=== PATIENT | female | born 1935 | race Two or more races ===

== ENCOUNTER → 2024-11-04 | Outpatient (CLI) | payer MEDICARE, SELFPAY ==
--- NOTE | 2024-11-04 15:40 | XR_ITS ---
Examination: Knee, left , 3 views Technique: Knee AP, lateral, oblique 3 views Date and time of exam: November 04, 2024 1621 hrs. Indications: Knee pain years. Findings: Severe osteopenia Moderate to advanced tricompartment osteoarthritis No fracture Small knee effusion Impression: Moderate to advanced tricompartment osteoarthritis
== END | disposition home or self-care (01) ==
PROVIDERS: PCP Family Medicine; Referring Provider Family Medicine; Visit Provider Family Medicine
DX: M17.12 Unilateral primary osteoarthritis, left knee (principal)
CPT/HCPCS: 73562

== ENCOUNTER 2024-12-20 10:32 | Emergency (ER) | payer OTHER, SELFPAY ==
[2024-12-20 11:04] VITALS: BP 128/60; PULSE 96; RESP 17; TEMP 36.7; O2SAT 99; BMI 43.9
--- NOTE | 2024-12-20 11:17 | PD.EDRME ---
Rapid Medical Screening Exam E Arrival date/time: 12/20/24 10:32 This is an 89-year-old female that is brought in by daughter with complaints of mouth bleeding. Patient states that she thinks she has a cut on her mouth. Over the past few days she has been spitting up blood. Patient states is not vomiting blood that is coming from her mouth. Patient denies any trauma. Patient has a history of high cholesterol, high blood pressure, and is on Eliquis. I have greeted and performed a focused initial assessment of this patient. Initial appropriate labs ordered at this time. A comprehensive ED assessment and evaluation of the patient and analysis of all test and completion of medical decision making process will be conducted by additional ED provider. Chief Complaint: Nausea/Vomiting/Diarrhea Time Seen by Provider: 12/20/24 11:01 Vital signs: Vital Signs Temperature 98.0 F 12/20/24 11:04 Pulse Rate 96 12/20/24 11:04 Respiratory Rate 17 12/20/24 11:04 Blood Pressure 128/60 12/20/24 11:04 Pulse Oximetry (%) 99 12/20/24 11:04 Oxygen Delivery Method Room Air 12/20/24 11:04
[2024-12-20 11:41] LABS: Basophils # (Auto) 0.1 Thou/mm3 (0.0-0.2); Basophils % (Auto) 1 % (0-2.5); Eosinophils # (Auto) 0.3 Thou/mm3 (0.0-0.5); Eosinophils % (Auto) 5 % (0-10); Hematocrit 31.3 % (36.0-46.0); Hemoglobin 9.5 g/dL (12.0-16.0); Immature Granulocytes % (Auto) 0 % (0-0); Immature Granulocytes Auto 0.02 Thou/mm3 (0.00-0.00); Lymphocytes # (Auto) 1.6 Thou/mm3 (1.0-4.8); Lymphocytes % (Auto) 28 % (10-50); Mean Corpuscular HGB Conc 30.4 g/dl (31.0-37.0); Mean Corpuscular Hemoglobin 26.9 pg (25.0-35.0); Mean Corpuscular Volume 89 fL (80-100); Monocytes # (Auto) 0.7 Thou/mm3 (0.0-0.8); Monocytes % (Auto) 11 % (0-12); Neutrophils # (Auto) 3.1 Thou/mm3 (1.8-7.7); Neutrophils % (Auto) 55 % (37-80); Nucleated Red Blood Cell % 0 /100 WBC (0); Platelet Count 287 Thou/mm3 (140-440); RDW Standard Deviation 49.1 fL (36.4-46.3); Red Blood Count 3.53 Miln/mm3 (4.00-5.20); White Blood Count 5.7 Thou/mm3 (3.6-11.0)
--- NOTE | 2024-12-20 14:04 | PD.EDADULT ---
ED General RME/HPI General Chief complaint: Nausea/Vomiting/Diarrhea Stated complaint: VOMITING BLOOD Time Seen by Provider: 12/20/24 11:01 Arrival date/time: 12/20/24 10:32 This is an 89-year-old female that is brought in by daughter with complaints of mouth bleeding. Patient states that she thinks she has a cut on her mouth. Over the past few days she has been spitting up blood. Patient states is not vomiting blood that is coming from her mouth. Patient denies any trauma. Patient has a history of high cholesterol, high blood pressure, and is on Eliquis. RME / HPI RME / HPI narrative: 12/20/24 10:32 This is an 89-year-old female that is brought in by daughter with complaints of mouth bleeding. Patient states that she thinks she has a cut on her mouth. Over the past few days she has been spitting up blood. Patient states is not vomiting blood that is coming from her mouth. Patient denies any trauma. Patient has a history of high cholesterol, high blood pressure, and is on Eliquis. I have greeted and performed a focused initial assessment of this patient. Initial appropriate labs ordered at this time. A comprehensive ED assessment and evaluation of the patient and analysis of all test and completion of medical decision making process will be conducted by additional ED provider. Related Data Home Medications ?Medication ?Instructions ?Recorded ?Confirmed alendronate 70 mg effervescent 70 mg PO QOWEEK 11/02/17 04/03/24 tablet calcium 600 mg (as 1 tab PO BID 11/02/17 04/03/24 carbonate)-vitamin D3 5 mcg (200 unit) capsule (Calcium 600 + D(3)) atorvastatin 20 mg tablet 20 mg PO HS 07/02/19 04/03/24 apixaban 5 mg tablet (Eliquis) 2.5 mg PO BID 08/27/19 04/03/24 furosemide 20 mg tablet 20 mg PO QAM 05/05/22 04/03/24 lisinopril 10 mg tablet 10 mg PO QDAY 04/03/24 04/03/24 Allergies Allergy/AdvReac Type Severity Reaction Status Date / Time Penicillins Allergy Unknown FEELS DIZZY Verified 12/20/24 10:35 Course Orders Category Date Time Status CBC Stat Lab 12/20/24 11:32 Completed Vital Signs Vital signs: Vital Signs Temperature 98.0 F 12/20/24 11:04 Pulse Rate 96 12/20/24 11:04 Respiratory Rate 17 12/20/24 11:04 Blood Pressure 128/60 12/20/24 11:04 Pulse Oximetry (%) 99 12/20/24 11:04 Oxygen Delivery Method Room Air 12/20/24 11:04 Medical Decision Making MDM Narrative MDM Narrative: CBC done and white count was 5.7 hemoglobin and hematocrit are 9.5 and 31.3 platelet count is 287.. No more bleeding noted. Patient is on Eliquis for irregular heartbeat. Lab Data 12/20/24 11:32 Labs: Lab Results 12/20/24 Range/Units 11:32 WBC 5.7 (3.6-11.0) Thou/mm3 RBC 3.53 L (4.00-5.20) Miln/mm3 Hgb 9.5 L (12.0-16.0) g/dL Hct 31.3 L (36.0-46.0) % MCV 89 (80-100) fL MCH 26.9 (25.0-35.0) pg MCHC 30.4 L (31.0-37.0) g/dl RDW Std Deviation 49.1 H (36.4-46.3) fL Plt Count 287 (140-440) Thou/mm3 Neut % (Auto) 55 (37-80) % Lymph % (Auto) 28 (10-50) % [place] % (Auto) 11 (0-12) % Eos % (Auto) 5 (0-10) % Baso % (Auto) 1 (0-2.5) % Neut # (Auto) 3.1 (1.8-7.7) Thou/mm3 Lymph # (Auto) 1.6 (1.0-4.8) Thou/mm3 [place] # (Auto) 0.7 (0.0-0.8) Thou/mm3 Eos # (Auto) 0.3 (0.0-0.5) Thou/mm3 Baso # (Auto) 0.1 (0.0-0.2) Thou/mm3 Immature Gran # (Auto) 0.02 H (0.00-0.00) Thou/mm3 Absolute Nucleated RBC 0.00 (0.00-0.00) Thou/mm3 Immature Gran % 0 (0-0) % Nucleated RBC % 0 (0) /100 WBC Discharge Plan Plan Patient Disposition: HOME (Self Care) Patient condition on transfer: Stable Prescriptions/Referrals Prescriptions/Med Rec: No Action Calcium 600 + D(3) 600 mg calcium- 200 unit Capsule 1 tab PO BID alendronate 70 mg Tablet, Effervescent 70 mg PO QOWEEK Rx Instructions: weds Eliquis 5 mg Tablet 2.5 mg PO BID atorvastatin 20 mg Tablet 20 mg PO HS furosemide 20 mg Tablet 20 mg PO QAM lisinopril 10 mg Tablet 10 mg PO QDAY Referrals: Cruz Dooley MD [Primary Care Provider] - In 1 week Problem List Clinical Impression: History of hemorrhage of tongue, 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 Come back to ED if symptoms change or worsen. If patient continues to have symptoms of bleeding please make sure primary provider knows about this and follow-up with them. May need to speak to liaison planner about current blood thinner if bleeding continues. Print Language: Uruguayan Stand Alone Forms: Micaela Award Info., Patient Portal Info Letter BLANCHE/NGUYEN Supervising Physician BLANCHE/NGUYEN Supervising Physician: zina
== END 2024-12-20 14:16 | disposition home or self-care (01) ==
PROVIDERS: Nurse Practitioner Family; Emergency Provider Emergency Medicine; PCP Family Medicine
DX: K14.8 Other diseases of tongue (principal); E78.00 Pure hypercholesterolemia, unspecified
CPT/HCPCS: 36415; 85025; 99283

== ENCOUNTER → 2024-12-23 | Outpatient (CLI) | payer MEDICARE, MEDICAID, SELFPAY ==
--- NOTE | 2024-12-23 16:00 | XR_ITS ---
EXAMINATION: Ankle, right 3 views . Technique: Ankle AP, oblique, lateral 3 views Date and time of exam: December 23, 2024 1610 hrs. Indications: Swelling palpable mass ankle, 3 years post ankle fracture Findings: Prominent lateral malleolar soft tissue swelling Healed fracture distal fibular shaft No acute fracture No chetan cortical bone destruction 8mm plantar bony calcaneal spur Impression: Prominent lateral malleolar soft tissue swelling, recommend ultrasound soft tissue ankle follow-up Acute fracture fibular shaft with satisfactory alignment
--- NOTE | 2024-12-23 16:01 | XR_ITS ---
Examination: AP bilateral knees single view Technique: Standing bilateral AP knees single view Exam date and time: December 23, 2024 1610 hrs. Indications: Left knee pain beginning 6 months ago. 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
== END | disposition home or self-care (01) ==
LOC: CDIM 15:23
PROVIDERS: PCP Family Medicine; Referring Provider Family Medicine; Visit Provider Family Medicine
DX: M17.12 Unilateral primary osteoarthritis, left knee (principal); Z96.651 Presence of right artificial knee joint; M25.471 Effusion, right ankle; S82.401A Unspecified fracture of shaft of right fibula, initial encounter for closed fracture; X58.XXXA Exposure to other specified factors, initial encounter
CPT/HCPCS: 73565; 73610

== ENCOUNTER → 2025-03-26 | Outpatient (CLI) | payer MEDICARE, MEDICAID, SELFPAY ==
--- NOTE | 2025-03-26 15:44 | XR_ITS ---
Examination: Bilateral AP knees single view TECHNIQUE: Bilateral AP knees standing single view Date and time: March 26, 2025 1601 hours INDICATIONS: Diagnosis primary osteoarthritis left knee, right knee surgery 2 years ago. FINDINGS: Significant osteopenia Total right knee arthroplasty. Satisfactory alignment Moderate to advanced osteoarthritis joint narrowing lateral joint space left knee Moderate osteoarthritis medial joint space left knee Normal left knee fracture IMPRESSION: Moderate to advanced osteoarthritis left lateral joint space Moderate osteoarthritis left medial joint space
--- NOTE | 2025-03-26 15:44 | XR_ITS ---
EXAMINATION: Ankle, right 3 views . Technique: Ankle AP, oblique, lateral 3 views Date and time of exam: March 26, 2025, 1552 hours Comparison December 23, 2024 INDICATIONS: Ankle surgery 2 years ago. FINDINGS: Healed bimalleolar fractures Moderate posttraumatic osteoarthritis tibiotalar joint 8 mm plantar bony calcaneal spur No acute fracture IMPRESSION: Moderate posttraumatic osteoarthritis tibiotalar joint
== END | disposition home or self-care (01) ==
LOC: CDIM 15:20
PROVIDERS: PCP Family Medicine; Referring Provider Orthopaedic Surgery; Visit Provider Orthopaedic Surgery
DX: M19.171 Post-traumatic osteoarthritis, right ankle and foot (principal); M17.12 Unilateral primary osteoarthritis, left knee
CPT/HCPCS: 73565; 73610

== ENCOUNTER 2025-05-24 19:17 | Emergency (ER) | payer MEDICARE, MEDICAID, SELFPAY ==
[2025-05-24 19:20] VITALS: BMI 35.1
--- NOTE | 2025-05-24 19:28 | XR_ITS ---
Examination: Foot, right, 3 views Technique: AP, oblique, lateral views foot, 3 views Date and time of exam: May 24, 20252006 hrs. Indications: Bruising and pain involving the foot beginning 2 days ago. Findings: Severe osteopenia No acute fracture 10 mm plantar bony calcaneal spur. Soft tissue swelling dorsum of the foot Impression: Soft tissue swelling dorsum of the foot No fracture No cortical bone destruction
[2025-05-24 20:18] VITALS: BP 135/77; PULSE 82; RESP 20; TEMP 36.8; O2SAT 97
--- NOTE | 2025-05-24 20:26 | XR_ITS ---
Examination: Duplex scan of the lower extremity, unilateral right Date and time of exam: May 24, 20252049 hrs. Indications: Onset right foot swelling and pain today Technique: Duplex scan of the extremity veins using B-mode/grayscale imaging and Doppler spectral analysis and color flow Attention is directed to internal echogenicity, compression and augmentation involving these veins, color flow assessment, spectral analysis Findings: Major deep venous structures in the extremity demonstrate normal course and caliber. There is no evidence of deep vein thrombosis. Normal color flow and spectral analysis Impression: Negative for DVT..
--- NOTE | 2025-05-24 20:26 | PD.EDRME ---
Rapid Medical Screening Exam RME Arrival date/time: 05/24/25 19:17 This is a case of 89-year-old female who have history of ankle surgery came in in the emergency room due to bluish discoloration of the right foot and swelling of the right foot right ankle and right lower leg no injury no trauma no other symptoms noted Chief Complaint: Ankle/Foot Injury Time Seen by Provider: 05/24/25 19:36 Vital signs: Vital Signs Temperature 98.2 F 05/24/25 20:18 Pulse Rate 82 05/24/25 20:18 Respiratory Rate 20 05/24/25 20:18 Blood Pressure 135/77 H 05/24/25 20:18 Pulse Oximetry (%) 97 05/24/25 20:18 Oxygen Delivery Method Room Air 05/24/25 20:18
[2025-05-24 21:03] LABS: Basophils # (Auto) 0.1 Thou/mm3 (0.0-0.2); Basophils % (Auto) 1 % (0-2.5); Eosinophils # (Auto) 0.2 Thou/mm3 (0.0-0.5); Eosinophils % (Auto) 3 % (0-10); Hematocrit 30.7 % (36.0-46.0); Hemoglobin 9.4 g/dL (12.0-16.0); Immature Granulocytes Auto 0.02 Thou/mm3 (0.00-0.00); Lymphocytes # (Auto) 1.8 Thou/mm3 (1.0-4.8); Lymphocytes % (Auto) 28 % (10-50); Mean Corpuscular HGB Conc 30.6 g/dl (31.0-37.0); Mean Corpuscular Hemoglobin 26.1 pg (25.0-35.0); Mean Corpuscular Volume 85 fL (80-100); Monocytes # (Auto) 0.8 Thou/mm3 (0.0-0.8); Monocytes % (Auto) 12 % (0-12); Neutrophils # (Auto) 3.7 Thou/mm3 (1.8-7.7); Neutrophils % (Auto) 56 % (37-80); Nucleated Red Blood Cell # 0.00 Thou/mm3 (0.00-0.00); Nucleated Red Blood Cell % 0 /100 WBC (0); Platelet Count 257 Thou/mm3 (140-440); RDW Standard Deviation 51.8 fL (36.4-46.3); Red Blood Count 3.60 Miln/mm3 (4.00-5.20); White Blood Count 6.6 Thou/mm3 (3.6-11.0)
[2025-05-24 21:26] LABS: B-Type Natriuretic Peptide 365 pg/mL (0-100)
[2025-05-24 21:38] LABS: Alanine Aminotransferase 8 U/L (10-49); Albumin, Serum 4.0 gm/dL (3.4-4.8); Albumin/Globulin Ratio 1.2 (1.2-2.2); Alkaline Phosphatase 62 U/L (46-116); Anion Gap 8 (7-16); Aspartate Amino Transferase 19 U/L (0-34); BUN/Creatinine Ratio 19 Ratio (12-20); Bilirubin,Total 0.4 mg/dL (0.3-1.2); Blood Urea Nitrogen 32 mg/dL (9-23); Calcium 9.3 mg/dL (8.3-10.6); Calcium (Corrected) 9.3 mg/dL (8.5-10.1); Carbon Dioxide 26.3 mMol/L (20.0-31.0); Chloride 103 mMol/L (98-107); Creatinine (Component) 1.7 mg/dL (0.6-1.3); Estimated Creatinine Clearance 22.5 mL/min (>60); Globulin 3.4 gm/dL (2.3-3.5); Glucose 93 mg/dL (74-106); Osmolality,Calculated 280 (275-295); Potassium 5.4 mMol/L (3.4-5.1); Sodium 137 mMol/L (136-145); Total Protein 7.4 gm/dL (5.7-8.2); eGFR 29 See Note
--- NOTE | 2025-05-24 22:50 | PD.EDANKLE ---
Lower Extremity Injury RME/HPI General Chief Complaint: Ankle/Foot Injury Stated Complaint: R FOOT PAIN SWELLING Time Seen by Provider: 05/24/25 19:36 Arrival date/time: 05/24/25 19:17 RME / HPI RME / HPI Narrative: 05/24/25 19:17 This is a case of 89-year-old female who have history of ankle surgery came in in the emergency room due to bluish discoloration of the right foot and swelling of the right foot right ankle and right lower leg no injury no trauma no other symptoms noted Dr. Sultana?s Main ED Evaluation: 89yo female presenting with slight discoloration dorsum right foot attributed to wearing a shoe that felt tight one day [employer]. No trauma or leg swelling. Patient has had a previous ORIF right ankle. No distal paresthesias or weakness. PMH includes aFib for which is chronically anticoagulated, HTN, HLD. Nondrinker, nonsmoker, no illicit drug use. Related Data Home Medications ?Medication ?Instructions ?Recorded ?Confirmed alendronate 70 mg effervescent 70 mg PO QOWEEK 11/02/17 04/03/24 tablet calcium 600 mg (as 1 tab PO BID 11/02/17 04/03/24 carbonate)-vitamin D3 5 mcg (200 unit) capsule (Calcium 600 + D(3)) atorvastatin 20 mg tablet 20 mg PO HS 07/02/19 04/03/24 apixaban 5 mg tablet (Eliquis) 2.5 mg PO BID 08/27/19 04/03/24 furosemide 20 mg tablet 20 mg PO QAM 05/05/22 04/03/24 lisinopril 10 mg tablet 10 mg PO QDAY 04/03/24 04/03/24 Previous Rx's ?Medication ?Instructions ?Recorded prednisone 20 mg tablet 20 mg PO QDAY 5 days #5 tabs 05/24/25 Allergies Allergy/AdvReac Type Severity Reaction Status Date / Time Penicillins Allergy Unknown FEELS DIZZY Verified 05/24/25 19:23 Review of Systems Review of Systems Systems Reviewed: All systems reviewed, normal except as documented Past Medical History Past Medical History NEUROLOGIC: Negative Neurological Disorders or Seizures CARDIAC: Positive Cardiac Disorders, Atrial Fibrillation, Hypercholesterolemia and Hypertension; Negative Congestive Heart Failure, Edema or Varicose Veins RESPIRATORY: Negative Chronic Obstructive Pulmonary Disease (COPD), Asthma or Bronchitis GASTROINTESTINAL: Positive Gastrointestinal Disorders and Obesity; Negative Hepatitis GENITOURINARY: Negative Genitourinary Disorders or Renal Disease REPRODUCTIVE: Positive Previous Pregnancies MUSCULOSKELETAL: Positive Musculoskeletal Disorders and Arthritis ENT: Positive Deafness; Negative Cataracts ENDOCRINE: Negative Endocrine Disorders, Diabetes Mellitus Type 1 or Diabetes Mellitus Type 2 HEMATOLOGIC: Negative Blood Disorders, Sickle Cell Disease or Clotting Problems OTHER HISTORY: Positive Hospitalization and Rubella (Ni[place] Measles); Negative Autoimmune Disease, Shingles, Falls, Blood Transfusions, Blood Transfusion Reaction, Anesthesia Reactions, Chemotherapy, Radiation Therapy, MRSA, Human Immunodeficiency Virus (HIV), Chicken Pox, Measles, Mumps, Pertussis, Clostridium Difficile or Cancer Family History FAMILY HISTORY: Positive Family Cardiac Disorders and Family Surgery; Negative Family Psychiatric Problems, Family Respiratory Disorders, Family Gastrointestinal Problems, Family Cancer or Family Anesthesia Reaction Surgical History SURGICAL: Negative Cardiac Surgery, Pacemaker, Endocrine Surgery, Ear Surgery, Abdominal Surgery, Joint Replacement or Tubal Ligation Social History SMOKING STATUS: Never smoker ED Exam Narrative Physical exam: GENERAL APPEARANCE: alert and oriented x 4, well-developed, well-nourished, no acute distress VITALS: All vitals were reviewed and the pulse ox is 97% on room air, which is normal according to my interpretation. HEENT: Normocephalic, atraumatic; pupils equal, round, reactive to light; EOMI; mucous membranes pink, moist; oropharynx clear NECK: Supple LUNGS: CTABL; no wheezes, no rales, no rhonchi HEART: Regular rate, regular rhythm; normal S1, S2; no murmurs ABDOMEN: non distended; normal BS; soft, no tenderness, no guarding, no rebound; no masses, no organomegaly, no hernia BACK: no CVA tenderness EXTREMITIES: atraumatic; 2+ edema noted on the dorsum of the right foot extending from the proximal foot to the distal metatarsal heads, slight ecchymosis along the medial aspect of the 1st metatarsal and extending to the dorsum of the foot; no warmth, induration, erythema, or discharge, full ROM Of the right ankle and toes, distal function intact NEUROLOGIC: awake; alert and oriented x4; cranial nerves II-XII grossly intact; no focal sensory or motor deficits PSYCHIATRIC: appropriate mood and affect SKIN: warm, dry, normal color; no rashes Course Quality Measures none Orders Category Date Time Status US venous doppler LE RT Stat Exams 05/24/25 20:26 Completed XR foot comp RT min 3V Stat Exams 05/24/25 19:28 Completed BNP [B-Type Natriuretic Peptide] Stat Lab 05/24/25 20:39 Completed CBC Stat Lab 05/24/25 20:39 Completed CMP [Comprehensive Metabolic Panel] Stat Lab 05/24/25 20:39 Completed Vital Signs Vital signs: Vital Signs Temperature 98.2 F 05/24/25 20:18 Pulse Rate 82 05/24/25 20:18 Respiratory Rate 20 05/24/25 20:18 Blood Pressure 135/77 H 05/24/25 20:18 Pulse Oximetry (%) 97 05/24/25 20:18 Oxygen Delivery Method Room Air 05/24/25 20:18 Extremity Injury, Lower MDM Narrative MDM Narrative:: Scribe Attestation: 05/24/25 - Christa Jenkins am scribing for and in the presence of Dr. Sultana. 89yo female presenting with slight discoloration dorsum right foot attributed to wearing a shoe that felt tight one day [employer]. No trauma or leg swelling. Please see PE findings. Routine x-rays demonstrated osteoporotic changes of the right foot, although no acute fracture. Soft tissue swelling noted. RLE US negative for DVT. Suspect soft tissue injury secondary to compression. Patient will be instructed to maintain elevation and will prescribe short course of prednisone and encourage patient to avoid weight bearing for several days. Precaution instructions issued. Dx: right foot swelling Patient data External records reviewed:: [facility] previous records (Per chart review, patient was seen here on 12/20/24 for history of hemorrhage of tongue.) Clinical information provided by:: patient Social determinants that could affect healthcare access:: none Patient has the following chronic illnesses:: aFib, HTN How is presenting disease/condition affected by chronic disease/condition?: uneffected by Evaluation data The following diagnostics were reviewed and interpreted by me:: lab results and radiology exam(s) Lab and/or radiology exams considered but not ordered:: none Interpretation Summary: [facility] Report Signed Patient: ROYA THORNTON. Record#: [id number] Birthdate: 1935 Age/Sex: 89 / F Location: [facility] Attending Dr: Ordering Physician: Rosendo Fuchs DO Date of Service: 05/24/25 Procedure(s): XR foot comp RT min 3V Accession Number(s): [id number] cc: Rosendo Fuchs DO; Cruz Dooley MD; Ant Hunter MD~ Examination: Foot, right, 3 views Technique: AP, oblique, lateral views foot, 3 views Date and time of exam: May 24, 2025 2007 hrs. Indications: Bruising and pain involving the foot beginning 2 days ago. Findings: Severe osteopenia No acute fracture 10 mm plantar bony calcaneal spur. Soft tissue swelling dorsum of the foot Impression: Soft tissue swelling dorsum of the foot No fracture No cortical bone destruction Dictated By: Ant Hunter MD Signed By: <Electronically signed by Ant Hunter MD in OV> 05/24/252108 [facility] Report Signed Patient: ROYA THORNTON Record#: [id number] Birthdate: 1935 Age/Sex: 89 / F Location: [facility] Attending Dr: Ordering Physician: Cass Roberts Date of Service: 05/24/25 Procedure(s): US venous doppler LE RT Accession Number(s): [id number] cc: Cruz Dooley MD; Ant Hunter MD; Cass Roberts~ Examination: Duplex scan of the lower extremity, unilateral right Date and time of exam: May 24, 20252049 hrs. Indications: Onset right foot swelling and pain today Technique: Duplex scan of the extremity veins using B-mode/grayscale imaging and Doppler spectral analysis and color flow Attention is directed to internal echogenicity, compression and augmentation involving these veins, color flow assessment, spectral analysis Findings: Major deep venous structures in the extremity demonstrate normal course and caliber. There is no evidence of deep vein thrombosis. Normal color flow and spectral analysis Impression: Negative for DVT.. Dictated By: Ant Hunter MD Signed By: <Electronically signed by Ant Hunter MD in OV> 05/24/258 Medications / Prescriptions Medications or Prescriptions considered but not ordered:: none Medication administrations:: see above, if any Consultations Consultation(s) initiated? (list below): No Diagnosis Extremity Injury, Lower Differential Diagnosis: other (DVT, cellulitis, fracture, dislocation) Most likely diagnosis given after review of the tests above:: see clinical impression below Admission Indicated Admission indicated?: not indicated Admission Request Was there a request for admission?: No Disposition Plan Disposition Plan: Discharge Discharge Attestation Discharge Attestation: The patient and all family members were given an opportunity to ask questions and understood the discharge instructions. Discharge instructions specifically effects, indications for sooner follow up or return to the emergency department, and the expected course of current diagnosis. Patient condition: Stable Discharge Plan Plan Patient Disposition: HOME (Self Care) Discharge Disposition comment: Stable Prescriptions/Referrals Prescriptions/Med Rec: New prednisone 20 mg tablet 20 mg PO QDAY 5 Days Qty: 5 0RF Taper: Prednisone Taper 20 mg DAILY for 5 Days and 0 Hour No Action Calcium 600 + D(3) 600 mg calcium- 200 unit Capsule 1 tab PO BID alendronate 70 mg Tablet, Effervescent 70 mg PO QOWEEK Rx Instructions: weds Eliquis 5 mg Tablet 2.5 mg PO BID atorvastatin 20 mg Tablet 20 mg PO HS furosemide 20 mg Tablet 20 mg PO QAM lisinopril 10 mg Tablet 10 mg PO QDAY Referrals: Cruz Dooley MD [Primary Care Provider, Family Practice] - In 1 week Problem List Clinical Impression: Localized soft tissue swelling Patient/Caregiver Discharge Instructions Other Activity Instructions:: Elevate right lower extremity, ice applications, medication as directed. Follow-up with primary care doctor as needed and return if worsening Education Materials: ED Foot Contusion Print Language: French Stand Alone Forms: Micaela Award Info., Patient Portal Info Letter
[2025-05-24 23:40] VITALS: BP 121/70; PULSE 91; RESP 17; TEMP 36.8; O2SAT 96
== END 2025-05-24 23:49 | disposition home or self-care (01) ==
PROVIDERS: Nurse Practitioner Family; Emergency Provider Emergency Medicine; PCP Family Medicine
DX: R60.0 Localized edema (principal); M79.671 Pain in right foot; I48.91 Unspecified atrial fibrillation; Z79.01 Long term (current) use of anticoagulants; I10 Essential (primary) hypertension; E78.5 Hyperlipidemia, unspecified
CPT/HCPCS: 36415; 73630; 80053; 83880; 85025; 93971; 99283